=== PATIENT | female | born 1960 | race Caucasian/White ===

== ENCOUNTER 2017-12-11 12:30 | Inpatient (IN) | payer OTHER ==
[~2017-12-11] VITALS: Ht 162.6 cm; Wt 62.6 kg
[2017-12-18] MEDS ORDERED: GABAPENTIN600 MG PO (07:05)
[2017-12-18] MEDS ORDERED: IBUPROFEN800 MG PO (07:05)
== END 2017-12-18 09:37 | DRG 743 ==
LOC: O/R 12-15 05:14 → SURG 12-15 07:00 → RECOVERY 12-15 12:30 → SURG 12-15 12:30 → OB/GYN 12-15 17:37
PROVIDERS: Obstetrics & Gynecology
PROC: 0UT20ZZ Resection of Bilateral Ovaries, Open Approach (ICD-10-PCS; 2017-12-15)
PROC: 0UT70ZZ Resection of Bilateral Fallopian Tubes, Open Approach (ICD-10-PCS; 2017-12-15)
PROC: 0DNW0ZZ Release Peritoneum, Open Approach (ICD-10-PCS; 2017-12-15)
PROC: 0UT90ZZ Resection of Uterus, Open Approach (ICD-10-PCS; principal; 2017-12-15 07:00)
DX: D25.1 Intramural leiomyoma of uterus (principal); N88.8 Other specified noninflammatory disorders of cervix uteri; N83.8 Other noninflammatory disorders of ovary, fallopian tube and broad ligament; N73.6 Female pelvic peritoneal adhesions (postinfective)